=== PATIENT | female | born 1975 | race Caucasian/White ===

== ENCOUNTER 2024-07-13 07:27 | Inpatient (IN) | payer BC ==
[~2024-07-13] VITALS: Ht 157.5 cm; Wt 79.4 kg
[~2024-07-13 07:27] MED LIST: CEFAZOLIN SOD 2 GM in D5W 50 ML IV ONE
[2024-07-13 08:40] LABS: HCG,QUAL RESULT NEGATIVE (NEGATIVE)
[2024-07-13] MEDS ORDERED: LR 1,000 ML IV.SOLN IV ONE (08:45)
[2024-07-13] MEDS ORDERED: PROPOFOL 200MG/ 20ML VIAL (DIPRIVAN) IV ONE (08:45)
[2024-07-13] MEDS ORDERED: ROCURONIUM BROMIDE 10 MG/ML (ZEMURON) ONE (08:45)
[2024-07-13] MEDS ORDERED: ONDANSETRON HCL 4 MG/2 ML VIAL ONE (08:45)
[2024-07-13] MEDS ORDERED: fentaNYL CITRATE/PF 100 MCG/2 ML AMP ONE (08:45)
[2024-07-13] MEDS ORDERED: KETOROLAC TROMETHAMINE 30 MG VIAL ONE (08:45)
[2024-07-13] MEDS ORDERED: NS 1000 ML IV.SOLN IV ONE (08:45)
[2024-07-13] MEDS ORDERED: ceFAZolin SODIUM 1 GM VIAL ONE (08:45)
[2024-07-13] MEDS ORDERED: NS IRRIG SOLN 1000 ML IR ONE (08:45)
[2024-07-13] MEDS ORDERED: BUPIVACAINE /PF 0.25% 10 ML VIAL INJ ONE (08:45)
[2024-07-13] MEDS ORDERED: ISOFLURANE 15 MIN GAS INH ONE (08:45)
[2024-07-13] MEDS ORDERED: MIDAZOLAM HCL 2 MG/2 ML VIAL (VERSED) ONE (08:45)
[2024-07-13] MEDS ORDERED: ACETAMINOPHEN I.V. 1000 MG 100 ML IV ONE (09:10)
[2024-07-13] MEDS ORDERED: HYDROmorphone 1 MG/ML INJ. CARTRIDGE IVP PRN ×2 (09:30)
[2024-07-13] MEDS ORDERED: MEPERIDINE HCL/PF 25 MG/ML DISP.SYRIN IVP PRN (09:30)
[2024-07-13] MEDS ORDERED: LR 1,000 ML IV SCH (09:30)
[2024-07-13] MEDS ORDERED: METOCLOPRAMIDE HCL 10 MG/2 ML VIAL IVP PRN (09:30)
[2024-07-13] MEDS ORDERED: hydrALAZINE HCL 20 MG/ML VIAL IVP PRN (09:30)
[2024-07-13] MEDS ORDERED: LABETALOL 100 MG/ 20ML VIAL IVP PRN (09:30)
[2024-07-13 09:38] VITALS: O2SAT 98
[2024-07-13] MEDS ORDERED: NALOXONE HCL 0.4 MG/ML AMP (NARCAN) IVP PRN ×2 (10:00)
[2024-07-13] MEDS ORDERED: HYDROcodone/ACETAMIN 5-325 MG TAB (NORCO/ VICODIN) PO PRN ×2 (10:00)
[2024-07-13] MEDS ORDERED: D5/0.45 NS 1,000 ML IV SCH (10:00)
[2024-07-13 14:45] VITALS: BP_SYST 139; PULSE 61; RESP 17
== END 2024-07-13 12:45 | disposition home or self-care (01) | DRG 419 ==
LOC: SMU 07:27 → EDSTATUS 08:55
PROVIDERS: ADMIT Colon & Rectal Surgery; ATTEND Colon & Rectal Surgery
PROC: BF131ZZ Fluoroscopy of Gallbladder and Bile Ducts using Low Osmolar Contrast (ICD-10-PCS; 2024-07-13)
PROC: 0FT44ZZ Resection of Gallbladder, Percutaneous Endoscopic Approach (ICD-10-PCS; principal; 2024-07-13 08:51)
DX: K80.10 Calculus of gallbladder with chronic cholecystitis without obstruction (principal); Z79.899 Other long term (current) drug therapy; Z88.8 Allergy status to other drugs, medicaments and biological substances
CPT/HCPCS: 74300; 84703; 87081; 88304; C1727; C1758; J0131; J0690; J1885; J2405; J2704; J3010; J3465; J3490; J7030; J7060; J7120; Q9967